=== PATIENT | male | born 1995 | race Caucasian/White ===

== ENCOUNTER 2019-03-09 18:29 | Emergency (ER) | payer OTHER, MEDICAID ==
[~2019-03-09] VITALS: Ht 170.2 cm; Wt 98.4 kg
[2019-03-09 18:50] VITALS: Ht 170.2 cm; Wt 98.4 kg
[2019-03-09 20:06] VITALS: BP 124/80
== END 2019-03-09 20:06 | disposition home or self-care (01) ==
LOC: ED 18:29
DX: J10.1 Influenza due to other identified influenza virus with other respiratory manifestations (principal); R51 Headache